=== PATIENT | female | born 1985 | race African-American/Black ===

== ENCOUNTER 2016-09-18 22:58 | Emergency (ER) | payer MEDICAID ==
[~2016-09-18] VITALS: Ht 167.6 cm; Wt 90.0 kg
[2016-09-19] MEDS ORDERED: IBUPROFEN 600MG TABLET PO ONE (03:15)
[2016-09-19 04:59] VITALS: BP 120/78
[2016-09-19] MEDS ORDERED: BACITRACIN ZINC OINT UDPKT TOP ONE (05:00)
[2016-09-19] MEDS ORDERED: HYDROCODONE/APAP 7.5/325MG 1 TAB TABLET PO ONE (05:00)
== END 2016-09-19 05:50 | disposition home or self-care (01) ==
LOC: ER 22:58
DX: N61.1 Abscess of the breast and nipple (principal); J45.909 Unspecified asthma, uncomplicated; Z88.8 Allergy status to other drugs, medicaments and biological substances
CPT/HCPCS: 99284; Z7610

== ENCOUNTER 2017-03-05 07:44 | Emergency (ER) | payer MEDICAID ==
[~2017-03-05] VITALS: Ht 170.2 cm; Wt 86.0 kg
[2017-03-05] MEDS ORDERED: MONT4TAB9 PO (08:24)
[2017-03-05] MEDS ORDERED: ALBU2.5V13 IH (08:24)
[2017-03-05] MEDS ORDERED: CLINDAMYCIN HCL 150MG CAPSULE PO ONE (11:15)
[2017-03-05] MEDS ORDERED: IBUPROFEN 400MG TABLET PO ONE (11:15)
[2017-03-05] MEDS ORDERED: ACETAMINOPHEN 500MG TABLET PO ONE (11:15)
[2017-03-05 11:21] VITALS: BP 108/75
== END 2017-03-05 11:49 | disposition home or self-care (01) ==
LOC: ER 07:44
DX: K04.7 Periapical abscess without sinus (principal); J45.909 Unspecified asthma, uncomplicated; Z98.890 Other specified postprocedural states; Z91.041 Radiographic dye allergy status
CPT/HCPCS: 99283; Z7610

== ENCOUNTER 2017-04-15 20:14 | Emergency (ER) | payer MEDICAID ==
[~2017-04-15] VITALS: Ht 167.6 cm; Wt 86.0 kg
[~2017-04-15 20:14] MED LIST: ALBU2.5V13 IH; MONT4TAB9 PO
[2017-04-15] MEDS ORDERED: IBUPROFEN 600MG TABLET PO ONE (21:15)
[2017-04-16] MEDS ORDERED: TRAMADOL 50MG TABLET PO ONE (01:30)
[2017-04-16] MEDS ORDERED: KETOROLAC 60MG/2ML VIAL IM ONE (01:30)
[2017-04-16] MEDS ORDERED: SODIUM CHLORIDE 0.9% 1,000 ML IV ONE (01:35)
[2017-04-16 02:23] LABS: BASOPHILS % 0.7 % (0.0-2.0); EOSINOPHILS % 0.6 % (0.0-5.0); HEMATOCRIT. 35.8 % (36.0-48.0); HEMOGLOBIN. 11.4 g/dL (12.0-16.0); LYMPHOCYTES % 24.2 % (20.0-50.0); MEAN CORPUSCULAR HEMOGLOBIN 23.8 pg (28.0-32.0); MEAN CORPUSCULAR VOLUME 74.7 fL (81.0-99.0); MEAN PLATELET VOLUME 9.4 fl (7.4-10.4); MONOCYTES % 7.2 % (2.0-8.0); NEUTROPHILS % 67.3 % (40.0-76.0); PLATELET 344 x1000/uL (130-400); RED CELL DISTRIBUTION WIDTH 14.8 % (11.6-14.6)
[2017-04-16 02:25] LABS: CHLORIDE 107 mEq/L (98-107)
[2017-04-16 02:27] LABS: HCG SCREEN NEGATIVE
[2017-04-16 02:34] LABS: ETHANOL BLOOD < 10 mg/dL
[2017-04-16 02:37] LABS: PARTIAL THROMBOPLASTIN TIME 26.4 sec (23.4-31.0); PROTHROMBIN TIME 10.6 sec (9.4-11.6)
[2017-04-16] MEDS ORDERED: BACITRACIN ZINC OINT UDPKT TOP ONE (03:15)
[2017-04-16] MEDS ORDERED: LIDOCAINE HCL 1% 20ML VIAL (Pyxis) INJ INFIL ONE (03:30)
[2017-04-16 06:55] VITALS: BP 111/67
== END 2017-04-16 11:25 | disposition left against medical advice (07) ==
LOC: ER 20:21 → EDBEDREQSVC 04-16 02:02 → EDBEDREQTM 04-16 02:02 → EDBEDREQ 04-16 02:02 → ER 04-16 11:25 → CANBEDREQ 04-16 13:33
DX: S06.9X0A Unspecified intracranial injury without loss of consciousness, initial encounter (principal); S61.411A Laceration without foreign body of right hand, initial encounter; S00.412A Abrasion of left ear, initial encounter; J45.909 Unspecified asthma, uncomplicated; Y08.89XA Assault by other specified means, initial encounter; Y93.89 Activity, other specified; Y92.89 Other specified places as the place of occurrence of the external cause; Y99.8 Other external cause status
CPT/HCPCS: 12001; 36415; 70450; 70486; 80053; 84703; 85025; 85610; 85730; 93005; 96360; 99285; G0482; J3490; J7030; Z7610

== ENCOUNTER 2021-01-05 05:03 | Emergency (ER) | payer MEDICAID ==
[~2021-01-05] VITALS: Ht 165.1 cm; Wt 65.0 kg
[2021-01-05 05:06] VITALS: BP 133/81
[2021-01-05] MEDS ORDERED: KETOROLAC 60MG/2ML VIAL IM ONE (05:30)
[2021-01-05] MEDS ORDERED: NAPR-681 MT (06:31)
== END 2021-01-05 08:27 | disposition home or self-care (01) ==
LOC: ER 05:03
DX: S93.692A Other sprain of left foot, initial encounter (principal); R03.0 Elevated blood-pressure reading, without diagnosis of hypertension; W01.0XXA Fall on same level from slipping, tripping and stumbling without subsequent striking against object, initial encounter; Y93.89 Activity, other specified; Y92.89 Other specified places as the place of occurrence of the external cause
CPT/HCPCS: 29515; 73610; 73630; 81025; 96372; 99284; J1885